=== PATIENT | male | born 1995 | race Caucasian/White ===

== ENCOUNTER 2017-01-20 19:11 | Emergency (ER) | payer BC, OTHER ==
[~2017-01-20] VITALS: Ht 167.6 cm; Wt 77.2 kg
[2017-01-20 19:24] VITALS: TEMP 36.4; Ht 167.6 cm; Wt 77.2 kg
[2017-01-20 20:00] VITALS: O2SAT 98
[2017-01-20 20:42] LABS: CREATININE 0.59 mg/dl (0.60-1.40); POTASSIUM 3.5 mmol/L (3.5-5.1)
--- NOTE | 2017-01-21 01:00 | EMERGENCY ROOM VISIT NOTE ---
History Report prepared by Ferchoibashly: Kenna Reynolds Under the Supervision of: Dr. Trevor Garcia D.O. 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 Per nursing staff, the patient was found vomiting and was brought in to the ED by ambulance. HPI limited secondary to intoxication. Source of History: nursing staff History Limited By: intoxication Onset: HEATER INSTALLER Position: other (global) Quality: other (intoxication) Timing: constant Associated Symptoms: + vomiting Review of Systems See HPI for pertinent positives & negatives. A total of 10 systems reviewed and were otherwise negative. Past Medical & Surgical Medical Problems: (1) No Known Active Medical Problems Family History No pertinent family history stated. Social History Marital Status: single Housing Status: lives with roommate Occupation Status: [employer] student Current/Historical Medications Unable to Obtain Active Prescriptions or Reported Meds Physical Exam Vital Signs Date Time Temp Pulse Resp B/P (MAP) Pulse Ox O2 Delivery O2 Flow Rate FiO2 01/21/17 00:07 91 15 105/52 97 Room Air 01/20/17 21:19 77 18 110/57 99 Room Air 01/20/17 21:00 85 16 100/70 99 Nasal Cannula 2.0 01/20/17 20:00 98 Room Air 01/20/17 19:58 89 16 100/59 100 Room Air 01/20/17 19:24 36.4 95 18 103/61 93 Room Air Physical Exam CONSTITUTIONAL/VITAL SIGNS: Reviewed / noted above. GENERAL: Non-toxic in appearance. Smells of alcohol. INTEGUMENTARY: Warm, dry, and [place]. HEAD: Normocephalic. EYES: without scleral icterus or trauma. ENT/OROPHARYNX: clear and moist. LYMPHADENOPATHY/NECK: Is supple without lymphadenopathy or meningismus. RESPIRATORY: Lungs clear and equal. CARDIOVASCULAR: Regular rate and rhythm. GI/ABDOMEN: Soft and nontender. No organomegaly or pulsatile mass. No rebound or guarding. Normal bowel sounds. EXTREMITIES: Warm and well perfused. BACK: No CVA tenderness. NEUROLOGICAL: Unresponsive to verbal stimuli. PSYCHIATRIC: normal affect. MUSCULOSKELETAL: Normally developed with good muscle tone. Medical Decision & Procedures Laboratory Results 01/20/17 20:07 Test 01/20/17 20:07 Anion Gap 8.0 mmol/L (3-11) Est Creatinine Clear Calc Drug Dose 39.1 ml/min Estimated GFR () 86.1 Estimated GFR (Non- 74.3 BUN/Creatinine Ratio 9.0 (10-20) Calcium Level 8.0 mg/dl (8.5-10.1) Ethyl Alcohol mg/dL 278.3 mg/dl (0-3) Laboratory results as stated above per my review. ED Course 191: Previous medical records were reviewed. The patient was evaluated in room C12A. A complete history and physical examination was performed. 0023: I reevaluated the patient. He will be discharged at 0400 or when he has a sober ride. Medical Decision There is no evidence of other toxic ingestions, trauma, anemia, hypoglycemia, head injury or intracranial pathology, meningitis, encephalitis, acute intrathoracic or abdominal pathology or other metabolic condition. This is a intoxicated male patient who presents the ED by ambulance. The patient remained in an aspiration precaution position during his ED stay. The patient remained on the monitor without ectopy. Pulse ox was never shown any evidence of hypoxia. Blood pressure never showed significant hypotension. The patient was observed during the entire night and awoke in the morning. The mental status improved and the patient was awake alert and oriented and was felt stable for discharge. Patient was discharged home. Medication Reconcilliation Current Medication List: was personally reviewed by me Blood Pressure Screening Patient's blood pressure: Elevated blood pressure Blood pressure disposition: Elevated BP felt to be situational Impression Primary Impression: Alcoholic intoxication Scribe Attestation The scribe's documentation has been prepared under my direction and personally reviewed by me in its entirety. I confirm that the note above accurately reflects all work, treatment, procedures, and medical decision making performed by me. Departure Information Dispostion Home / Self-Care Prescriptions Unable to Obtain Active Prescriptions or Reported Meds Patient Instructions Alcohol Intoxication - [facility], My [facility] Additional Instructions Do not drink alcohol.
[2017-01-21] MEDS ORDERED: LIDO/EPINEPHRINE/SOD BICARB 20 ML VIAL INFIL ONE (05:41)
--- NOTE | 2017-01-21 06:02 | EMERGENCY ROOM VISIT NOTE ---
ED Visit Note As the patient was leaving for discharge, he went to the bathroom. When he returned to the room, he tripped and fell, striking his inferior chin on the metal table in the room. The patient now has a 1 cm laceration on the inferior chin which is gaping apart with and without traction. It is actively bleeding. Report a mild amount of pain associated, but denies any numbness or tingling. He denies any speech difficulty, blurry vision, loss of consciousness, confusion, dizziness, or other concerning symptoms. The patient's tetanus vaccination is up-to-date. Verbal consent was obtained to perform the procedure. Using sterile technique the wound was cleaned with Betadine. The area was sterilely draped. 4 ml of 1 % buffered lidocaine with epinephrine was used to anesthetize the inferior chin. Once the patient was anesthetized, the wound was copiously irrigated under pressure with sterile saline. The wound was explored and there were no deep structures injured such as tendons, bone, or significant blood vessels. The laceration was repaired using 4 simple interrupted 5-0 nylon sutures with the wound edges being well approximated. The patient tolerated the procedure well. Hemostasis was achieved. The area was cleaned with sterile saline and dressed with bacitracin ointment and bandage. The patient was discharged home in good condition.
[2017-01-21 06:11] VITALS: BP 117/64; PULSE 76; O2SAT 98
== END 2017-01-21 06:13 | disposition home or self-care (01) ==
LOC: EDBD 19:11 → C.EDC 19:12 → EDBD 19:12 → C.EDC 01-21 06:13
DX: F10.129 Alcohol abuse with intoxication, unspecified (principal); Y90.8 Blood alcohol level of 240 mg/100 ml or more; S01.81XA Laceration without foreign body of other part of head, initial encounter; W01.0XXA Fall on same level from slipping, tripping and stumbling without subsequent striking against object, initial encounter

== ENCOUNTER 2017-01-27 13:42 | Emergency (ER) | payer BC ==
[~2017-01-27] VITALS: Ht 172.7 cm; Wt 68.9 kg
[2017-01-27 13:49] VITALS: BP 137/82; PULSE 85; TEMP 36.8; O2SAT 98; Ht 172.7 cm; Wt 68.9 kg
--- NOTE | 2017-01-27 14:03 | EMERGENCY ROOM VISIT NOTE ---
ED Visit Note First contact with patient: 13:52 CHIEF COMPLAINT: Suture removal HPI: This patient returns to the ED today for removal of sutures that were placed 7 days ago. There has been no swelling, redness, or drainage from the wound. The patient feels like the laceration is healing well. REVIEW OF SYSTEMS: A complete 6 point review of systems was reviewed with the patient with pertinent positives and negatives as per history of present illness. All else were negative. PMH: None ALLERGIES: None SOCIAL HISTORY: Patient lives locally. He denies drug, alcohol, tobacco use. PHYSICAL EXAM: Vital Signs: Reviewed Nurse's notes. There is a sutured wound on the inferior chin with no signs of infection. There is no erythema, swelling , or tenderness. EMERGENCY DEPARTMENT COURSE: I reviewed the patients EMR regarding suture placement. 4 sutures were placed 1 week ago. The sutures were removed without any difficulty and there was no separation of the wound edges. DIAGNOSIS: Healing laceration and suture removal Current/Historical Medications Unable to Obtain Active Prescriptions or Reported Meds Allergies Coded Allergies: No Known Allergies (Unverified , 01/27/17) Vital Signs Date Time Temp Pulse Resp B/P (MAP) Pulse Ox O2 Delivery O2 Flow Rate FiO2 01/27/17 13:49 36.8 85 18 137/82 98 Room Air Departure Information Impression Primary Impression: Encounter for removal of sutures Additional Impression: Facial laceration Dispostion Home / Self-Care Condition GOOD Prescriptions Unable to Obtain Active Prescriptions or Reported Meds Referrals No Doctor, Assigned (PCP) Patient Instructions ED Laceration Chin Sutr Tape, [facility] Additional Instructions Proper wound care is essential for adequate wound healing and infection prevention. You can shower and clean the wound with soap and water. Do not scour over the wound, pat dry with a towel. Do not submerse the wound (i.e. bathe or dish wash) until the wound has fully healed. You can use an antibiotic ointment with a dressing over the wound for the next 3-4 days. After this time you may leave the wound dry and open to the air. Use vitamin E oil over the wound to help prevent scarring. When in the sun, use SPF 50 or above to help with scarring. I would advise against shaving until all wounds have healed and there is no more bleeding, discharge, or scabbing. Return to the emergency department for her yelling drainage, increased pain, worsening bleeding, fever, chills, nausea, vomiting, increased redness, or other concerning symptoms. Problem Qualifiers Additional Impression: Facial laceration Encounter type: subsequent encounter Qualified Codes: S01.81XD - Laceration without foreign body of other part of head, subsequent encounter
== END 2017-01-27 14:10 | disposition home or self-care (01) ==
LOC: C.EDB 13:43 → C.EDD 14:10
DX: S01.81XD Laceration without foreign body of other part of head, subsequent encounter (principal); X58.XXXD Exposure to other specified factors, subsequent encounter